=== PATIENT | female | born 1975 | race Two or more races ===

== ENCOUNTER → 2016-11-24 | Day surgery (SDC) | payer OTHER ==
--- NOTE | 2016-11-25 11:23 | PATH ---
Surgical Pathology Report Patient Name: DENISSE GASPAR [facility] [place]. Rec. #: [id number] /Age/Gender: 1975 (Age: 41) / F Account: [id number] Location: [facility] Taken: 11/24/2016 Received: 11/24/2016 Reported: 11/25/2016 Physicians: Laurie Pedroza M.D. Specimen(s) Received A: LEFT BREAST SPECIMEN WITH CALCIFICATIONS B: LEFT BREAST SPECIMEN WITHOUT CALCIFICATIONS Clinical History Microcalcification, suspicious Final Diagnosis A. LEFT BREAST, WITH CALCIFICATION, STEREOTACTIC NEEDLE CORE BIOPSY: BENIGN BREAST TISSUE WITH FIBROCYSTIC CHANGES INCLUDING FOCAL USUAL DUCTAL HYPERPLASIA (UDH), COLUMNAR CELL CHANGE, STROMAL FIBROSIS, DUCTAL DILATATION, AND CYSTIC APOCRINE METAPLASIA. MICROCALCIFICATIONS ARE IDENTIFIED. B. LEFT BREAST, WITHOUT CALCIFICATION, STEREOTACTIC NEEDLE CORE BIOPSY: BENIGN BREAST TISSUE WITH FIBROCYSTIC CHANGES INCLUDING FOCAL USUAL DUCTAL HYPERPLASIA (UDH), COLUMNAR CELL CHANGE, STROMAL FIBROSIS, DUCTAL DILATATION, AND CYSTIC APOCRINE METAPLASIA. Electronically Signed Donaldo Calloway M.D. Gross Description A. Received in formalin, labeled "left breast with calcifications," are 8 medina-yellow, cylindrical portions of fibroadipose tissue ranging from 1.3-2.5 cm. in length and averaging 0.2 cm. in diameter. The specimen is submitted in toto in 2 cassettes. B. Received in formalin, labeled "left breast without calcifications," are 3 medina-yellow, cylindrical portions of fibroadipose tissue ranging from 0.5-1.5 cm. in length and averaging 0.3 cm. in diameter. The specimen is submitted in toto in one cassette. Time to formalin fixation: 5 minutes Total formalin fixation time: Approximately 8 hours. 11/24/2016 [facility]
--- NOTE | 2016-11-25 15:29 | OP ---
DATE OF OPERATION: 11/24/2016 PREOPERATIVE DIAGNOSIS: Abnormal left mammography. POSTOPERATIVE DIAGNOSIS: Abnormal left mammography. PROCEDURE: Left stereotactic needle biopsy with clips. SURGEON: Laurie Stern MD ANESTHESIA: Local. COMPLICATION: None. DISPOSITION: Stable at end of procedure. INDICATION FOR PROCEDURE: The patient presented with a screening mammography that noted cluster of microcalcifications in the upper outer left breast posterior to a prior clip from a biopsy, and a needle biopsy of this area was recommended by the radiologist. My recommendation was biopsy as well. The procedure of a left stereotactic needle biopsy with clip was discussed and all her questions answered. PROCEDURE IN DETAIL: Patient was brought to [facility] and taken in to the breast imaging area, laid prone on the OR table using the lateral approach. The calcifications in the upper outer left breast were identified. A sterile prep was obtained, the target was chosen. There was a positive stroke margin. Using Betadine and 1% lidocaine, a 10-gauge Suros device was used to take several cores from this area. Cores showed calcification within them. These were handled using calcification protocol. A T-shaped clip was deployed in the area. Hemostasis assured with direct pressure. Steri-Strips were used to close the incision. She tolerated the procedure well and [facility] good condition. LAURIE STERN M.D. [id number]
== END | disposition home or self-care (01) ==
LOC: FMAMMOTONE 09:31
PROVIDERS: ATTEND Surgery
PROC: 0HBU3ZX Excision of Left Breast, Percutaneous Approach, Diagnostic (ICD-10-PCS; principal; 2016-11-24)
DX: N60.82 Other benign mammary dysplasias of left breast (principal); N60.32 Fibrosclerosis of left breast; N64.89 Other specified disorders of breast
CPT/HCPCS: 19081; 87899; 88305-TC; A4648

== ENCOUNTER 2018-11-02 08:57 | Emergency (ER) | payer OTHER ==
[2018-11-02 09:31] VITALS: BP 133/79; PULSE 66; TEMP 98.3; BMI 25.7
[2018-11-02 10:35] LABS: HCG,QUALITATIVE URINE Negative
[2018-11-02 10:47] LABS: URINE APPEARANCE CLEAR; URINE BILIRUBIN NEGATIVE (<2.0 mg/dL); URINE COLOR COLORLESS; URINE GLUCOSE (UA) NEGATIVE (NEGATIVE); URINE KETONE NEGATIVE (NEGATIVE); URINE LEUK ESTERASE NEGATIVE (NEGATIVE); URINE NITRITE NEGATIVE (NEGATIVE); URINE PROTEIN NEGATIVE (NEGATIVE); URINE UROBILINOGEN NEGATIVE mg/dL (0.2-1.0)
[2018-11-02 11:07] LABS: EPI CELLS RARE /HPF (FEW)
--- NOTE | 2018-11-02 11:16 | PDOC ---
History of Present Illness - General Chief Complaint: Back Pain Stated Complaint: BACK PAIN Time Seen by Provider: 11/02/18 09:59 History Source: Patient Exam Limitations: Clinical Condition - History of Present Illness Initial Comments: 11/02/18 11:11 Patient with no significant past medication present with complaint of three-day history of mid back pain on left side of sudden onset which is worse with movement. Patient reported taking ibuprofen for symptoms persist symptoms still persists. Patient denies any urinary symptoms of dysuria, frequency or burning with urination. Patient denies nausea or vomiting. Patient denies any other symptoms. Patient denies trauma or injury to back Timing/Duration: other (3 days) Past History - Past Medical History Allergies/Adverse Reactions: Allergies Allergy/AdvReac Type Severity Reaction Status Date / Time No Known Drug Allergies Allergy Verified 11/02/18 09:26 Home Medications: Ambulatory Orders Methocarbamol [Robaxin -] 500 mg PO BID PRN #14 tablet 11/02/18 Naproxen 500 mg PO BID PRN #20 tablet 11/02/18 Cardiac Disorders: Yes (MITRAL VALVE INSUFFIENCY) COPD: No - Immunization History Immunization Up to Date: Yes - Suicide/Smoking/Psychosocial Hx Smoking History: Never smoked Information on smoking cessation initiated: No Hx Alcohol Use: No Drug/Substance Use Hx: No Substance Use Type: None Hx Substance Use Treatment: No Review of Systems - Review of Systems Able to Perform ROS?: Yes Is the patient limited Vietnamese proficient: No Constitutional: No: Chills, Fever, Weakness HEENTM: No: Symptoms Reported Respiratory: No: Symptoms reported Cardiac (ROS): No: Symptoms Reported ABD/GI: No: Nausea, Vomiting : No: Burning, Discharge, Frequency, Flank Pain, Hematuria, Incontinence, Pain , Urgency Musculoskeletal: Yes: Back Pain (mid-back on left), Muscle Pain (mid-back) Neurological: No: Numbness, Paresthesia, Tingling, Dizziness All Other Systems: Reviewed and Negative *Physical Exam - Vital Signs Last Vital Signs Temp Pulse Resp BP Pulse Ox 98.3 F 66 16 133/79 100 11/02/18 09:26 11/02/18 09:26 11/02/18 09:26 11/02/18 09:26 11/02/18 09:26 - Physical Exam Comments: 11/02/18 11:13 GENERAL: Well developed, well nourished. Awake and alert. No acute distress. CARDIOVASCULAR: Regular rate and rhythm. No murmurs, rubs, or gallops. PULMONARY: No evidence of respiratory distress. Lungs clear to auscultation bilaterally. No wheezing, rales or rhonchi. ABDOMINAL: Soft. Non-tender. Non-distended. No rebound or guarding. No organomegaly. Normoactive bowel sounds MUSCULOSKELETAL : mild tenderness over posterior paravertebral muscle of thoracic spine of T8-T10 on left sides. pain worse with external rotation of hip. no CVAT No bony deformities EXTREMITIES: No cyanosis. No clubbing. No edema. No calf tenderness. SKIN: Warm and dry. Normal capillary refill. No rashes. No jaundice. NEUROLOGICAL: Alert, awake, appropriate. No motor deficits in the lower extremities. Gait is normal without ataxia. PSYCHIATRIC: Cooperative. Good eye contact. Appropriate mood and affect. General Appearance: Yes: Nourished, Appropriately Dressed. No: Apparent Distress Moderate Sedation - Procedure Monitoring Vital Signs: Procedure Monitoring Vital Signs Temperature 98.3 F 11/02/18 09:26 Pulse Rate 66 11/02/18 09:26 Respiratory Rate 16 11/02/18 09:26 Blood Pressure 133/79 11/02/18 09:26 O2 Sat by Pulse Oximetry (%) 100 11/02/18 09:26 ED Treatment Course - ADDITIONAL ORDERS Additional order review: Laboratory Results 11/02/18 10:25 Urine Color Colorless Urine Appearance Clear Urine pH 7.0 Ur Specific [place] 1.010 Urine Protein Negative Urine Glucose (UA) Negative Urine Ketones Negative Urine Blood 1+ H Urine Nitrite Negative Urine Bilirubin Negative Urine Urobilinogen Negative Ur Leukocyte Esterase Negative Urine HCG, Qual Negative - RADIOLOGY Radiology Studies Ordered: Category Date Time Status SPINE-LUMBAR ONLY [RAD] Stat Radiology 11/02/18 10:19 Taken SPINE-THORACIC [RAD] Stat Radiology 11/02/18 10:19 Completed Medical Decision Making - Medical Decision Making 11/02/18 11:15 Patient with no significant past medication present with complaint of mid back pain of sudden onset for 3 days without trauma or injury. Exam significant for mild tenderness over paravertebral muscle on lower thoracic spine on left side. UA and urine culture ordered. Urine hCG negative. X-ray of thoracic spine ordered. Symptoms likely back spasm. Patient be discharged home on NSAIDs and muscle relaxer if negative lab and x-ray. 11/02/18 11:26 UA shows no acute findings. Uhcg neg. x-ray shows no acute pathology. symptoms likely back spasm. Toradol 60mg IM given for pain. pt stable for discharge on NSAIDS and muscle relaxer with orthopedics follow-up *DC/Admit/Observation/Transfer Diagnosis at time of Disposition: Back spasm Lumbago Qualifiers: Chronicity: acute Back pain laterality: left Sciatica presence: without sciatica Qualified Code(s): M54.5 - Low back pain - Discharge Dispostion Disposition: HOME Condition at time of disposition: Stable Decision to Admit order: No - Prescriptions Prescriptions: Methocarbamol [Robaxin -] 500 mg PO BID PRN #14 tablet PRN Reason: Back Pain Naproxen 500 mg PO BID PRN #20 tablet PRN Reason: Back Pain - Referrals Referrals: Chioma Jarvis MD [Primary Care Provider] - Micha Rea MD [Staff Physician] - - Patient Instructions Printed Discharge Instructions: DI for Back Spasm Additional Instructions: take medications as needed for pain. apply heat to back 2-3 times/day for 5- 10mins as needed for pain. Follow-up with orthopedics as needed if symptoms persist for more than 4 days - Post Discharge Activity
[2018-11-02] MEDS ORDERED: KETOROLAC TROMETHAMINE 60 MG/2 ML VIAL IM ONE (11:30)
[2018-11-02] MEDS ORDERED: KETOROLAC TROMETHAMINE 60 MG/2 ML VIAL ONE (11:31)
== END 2018-11-02 11:36 | disposition home or self-care (01) ==
LOC: JERFT 08:57
PROC: 3E0233Z Introduction of Anti-inflammatory into Muscle, Percutaneous Approach (ICD-10-PCS; principal; 2018-11-02)
DX: M62.830 Muscle spasm of back (principal); M54.5 Low back pain
CPT/HCPCS: 72070-TC-FY; 72100-TC-FY; 81003; 81015; 84703; 87086; 96372; 99281-25

== ENCOUNTER 2021-02-27 09:30 | Emergency (ER) | payer OTHER ==
[2021-02-27 09:53] VITALS: BP 131/82; PULSE 86; TEMP 97.9; BMI 25.0
[2021-02-28 10:11] LABS: SARS-CoV-2 NAA Not Detected (Not Detected)
== END 2021-02-27 12:05 | disposition home or self-care (01) ==
LOC: JER 09:30
DX: B34.9 Viral infection, unspecified (principal)
CPT/HCPCS: 71046-TC-FY; 87880; 99284-25; C9803; U0003; U0005

== ENCOUNTER 2021-08-06 08:13 | Emergency (ER) | payer OTHER ==
[2021-08-06 08:38] VITALS: TEMP 98.1; BMI 25.4
[2021-08-06] MEDS ORDERED: METOCLOPRAMIDE HCL INJECTION 10 MG/2 ML VIAL IVPUSH ONE (09:32)
[2021-08-06] MEDS ORDERED: ACETAMINOPHEN/CAFFEINE/BUTALBITAL 1 TAB PO ONE (09:33)
[2021-08-06] MEDS ORDERED: METOCLOPRAMIDE HCL INJECTION 10 MG/2 ML VIAL ONE (10:05)
[2021-08-06] MEDS ORDERED: ACETAMINOPHEN/CAFFEINE/BUTALBITAL 1 TAB ONE (10:19)
[2021-08-06 10:43] LABS: BASO % 0.7 % (0-2.0); EOS % 2.4 % (0-4.5); HEMATOCRIT 40.6 % (32.4-45.2); HEMOGLOBIN 14.2 GM/dL (10.7-15.3); LYMPH % 32.9 % (8-40); MCH 32.2 pg (25.7-33.7); MCHC 34.8 g/dl (32.0-36.0); MEAN CELL VOLUME 92.5 fl (80-96); MEAN PLT VOLUME 8.3 fl (7.5-11.1); MONO % 8.8 % (3.8-10.2); NEUT % 55.2 % (42.8-82.8); PLATELET COUNT 273 10^3/uL (134-434); RBC 4.39 M/mm3 (3.60-5.2); WHITE BLOOD COUNT 3.5 K/mm3 (4.0-10.0)
[2021-08-06 11:53] LABS: CHLORIDE 108 mmol/L (98-107); SODIUM 139 mmol/L (136-145)
[2021-08-06 11:57] LABS: ALBUMIN 3.8 g/dl (3.4-5.0); ANION GAP 5 MMOL/L (8-16); BLOOD UREA NITROGEN 8.4 mg/dL (7-18); CALCIUM 8.4 mg/dL (8.5-10.1); CO2 26 mmol/L (21-32); GLUCOSE,RANDOM 80 mg/dL (74-106)
[2021-08-06 12:00] LABS: SGPT/ALT 21 U/L (13-61)
[2021-08-06 12:01] LABS: CREATININE 0.8 mg/dL (0.55-1.3); SGOT/AST 13 U/L (15-37)
[2021-08-06 12:02] LABS: ALK PHOS 61 U/L (45-117); BILIRUBIN,TOTAL 0.4 mg/dL (0.2-1)
[2021-08-06 14:16] VITALS: BP 125/74; PULSE 71
== END 2021-08-06 14:22 | disposition home or self-care (01) ==
LOC: JER 08:13
PROC: 3E033NZ Introduction of Analgesics, Hypnotics, Sedatives into Peripheral Vein, Percutaneous Approach (ICD-10-PCS; principal; 2021-08-06)
DX: R00.2 Palpitations (principal); G44.229 Chronic tension-type headache, not intractable
CPT/HCPCS: 36415; 70450-TC; 71046-TC-FY; 80053; 84439; 84443; 84484; 84703; 85025; 93005; 93010; 99285-25

== ENCOUNTER 2021-10-24 12:53 | Emergency (ER) | payer OTHER ==
[2021-10-24 13:09] VITALS: BP 123/78; PULSE 71; TEMP 98.4; BMI 25.4
[2021-10-24] MEDS ORDERED: DEXAMETHASONE LIQUID 0.5 MG/5 ML PO ONE (14:05)
[2021-10-24] MEDS ORDERED: DEXAMETHASONE SOD PHOSPHATE 4 MG/1 ML VIAL ONE (14:18)
== END 2021-10-24 16:10 | disposition home or self-care (01) ==
LOC: JER 12:53
DX: J06.9 Acute upper respiratory infection, unspecified (principal); Z11.52 Encounter for screening for COVID-19
CPT/HCPCS: 71046-TC-FY; 99284-25; C9803; U0003; U0005

== ENCOUNTER 2022-05-27 04:31 | Day surgery (SDC) | payer OTHER ==
[2022-05-26 11:08] VITALS: BMI 24.4
[2022-05-27 12:39] VITALS: TEMP 98
[2022-05-27 13:26] VITALS: BP 103/61; PULSE 74
== END 2022-05-27 13:35 | disposition home or self-care (01) ==
LOC: JASU-ENDO 04:31
PROVIDERS: ATTEND Internal Medicine Gastroenterology
PROC: 0DB78ZX Excision of Stomach, Pylorus, Via Natural or Artificial Opening Endoscopic, Diagnostic (ICD-10-PCS; principal; 2022-05-27 12:45)
DX: K22.5 Diverticulum of esophagus, acquired (principal); K29.50 Unspecified chronic gastritis without bleeding; K44.9 Diaphragmatic hernia without obstruction or gangrene
CPT/HCPCS: 81025; 88305-TC; 88342-TC